=== PATIENT | female | born 1980 | race Caucasian/White ===

== ENCOUNTER 2017-07-28 22:43 | Emergency (ER) | payer MEDICAID, OTHER ==
[2017-07-28] MEDS ORDERED: Tetracaine HCl/PF 0.5% 4 ML Bottle EYEBOTH ONE (22:56)
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
[2017-07-28] MEDS ORDERED: Balanced Salt Solution Ophth Irrig 30 ML Bottle EYERT ONE (22:57)
[2017-07-28] MEDS ORDERED: Balanced Salt Solution Ophth Irrig 30 ML Bottle EYELF ONE (22:57)
[2017-07-28] MEDS ORDERED: methylPREDNISolone Acetate 80 MG/ML SDV IM ONE (23:11)
[2017-07-28] MEDS ORDERED: Diphtheria,Pertussis(Acell),Tetanus Vaccine 0.5 ML SDV IM ONE (23:12)
[2017-07-28] MEDS ORDERED: Famotidine 20 MG Tab PO ONE (23:12)
== END 2017-07-29 | disposition home or self-care (01) ==
LOC: LL.ED 22:43
DX: L24.5 Irritant contact dermatitis due to other chemical products (principal); T65.91XA Toxic effect of unspecified substance, accidental (unintentional), initial encounter; H10.213 Acute toxic conjunctivitis, bilateral; Z23 Encounter for immunization; J45.909 Unspecified asthma, uncomplicated; F17.210 Nicotine dependence, cigarettes, uncomplicated; Y99.0 Civilian activity done for income or pay; Z88.1 Allergy status to other antibiotic agents
CPT/HCPCS: 90471; 90715; 96372; 99284; A9270; J1040; J3360

== ENCOUNTER 2020-09-12 20:03 | Observation (INO) | payer OTHER ==
[2020-09-12] MEDS ORDERED: HYDROmorphone 1 MG/ML Syringe IVPUSH ONE (20:05)
[2020-09-12] MEDS ORDERED: Ondansetron 4 MG/2 ML SDV IVPUSH ONE (20:05)
[2020-09-12] MEDS: Sodium Chloride 0.9% 10 ML Syringe FLUSH PRN ×2 (20:10→20:36)
[2020-09-12 20:35] LABS: CHLORIDE,CL 101 mmol/L (98-107); SODIUM,NA 138 mmol/L (136-145)
[2020-09-12] MEDS ORDERED: HYDROmorphone 0.5 MG/0.5 ML Syringe IVPUSH ONE (20:36)
[2020-09-12] MEDS ORDERED: Ketorolac 30 MG/ML SDV IVPUSH ONE (20:36)
[2020-09-12] MEDS ORDERED: Promethazine 25 MG/ML SDV IM ONE (20:50)
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
[2020-09-12] MEDS ORDERED: Acetaminophen 325 MG Tab PO PRN (21:53)
[2020-09-12] MEDS ORDERED: Morphine 2 MG/ML SYRINGE IVPUSH PRN (21:56)
[2020-09-12] MEDS ORDERED: Promethazine 25 MG/ML SDV IM PRN (21:56)
[2020-09-12] MEDS ORDERED: Ondansetron 4 MG/2 ML SDV IVPUSH PRN (21:56)
[2020-09-12] MEDS: Sodium Chloride 0.9% 1,000 ML IV SCH (22:31)
[2020-09-13] MEDS ORDERED: Ketorolac 30 MG/ML SDV IVPUSH SCH (02:30)
[2020-09-13] MEDS: Sodium Chloride 0.9% 10 ML Syringe FLUSH PRN (02:45)
[2020-09-13] MEDS ORDERED: diphenhydrAMINE 25 MG Cap PO PRN (04:17)
--- NOTE | 2020-09-13 04:52 | PCM.DCSUM1 ---
Discharge Summary - Hospital Course Brief History: Patient admitted for pain control after accidentally pulling out her stent one day after having kidney stone lithotripsy/removal procedure at [facility]. Diagnosis: Stroke: No - Discharge Data Discharge Date: 09/13/20 Discharge Disposition: Home, Self-Care 01 Condition: Good - Referral to Home Health Primary Care Physician: Iris Kline NP - Discharge Diagnosis/Problem(s) (1) Ureteral colic SNOMED Code(s): 63672806 ICD Code: N23 - UNSPECIFIED RENAL COLIC Status: Acute Current Visit: Yes Onset Date: 09/12/20 Problem Details: Ureteral spasm as result of sudden removal of stent a day after patient underwent lithotripsy for right sided stone. Has had no pain complaints since after midnight. from [facility] updated. At this time patient is not interested in returning to [facility] for another stent tomorrow but has been advised to contact them for further planning as needed. - Patient Summary/Data Hospital Course: Patient received Toradol/Dilaudid for pain and Phenergan/Zofran for nausea/emesis. Significant improvement of symptoms within 3-4 hours of ad mission to observation. Currently pain-free. Plan will be to let her be discharged in the morning. She is to call Urology to update them and see if they have any additional recommendations for her since she pulled the stent out on her own. - Patient Instructions Diet: Usual Diet as Tolerated Activity: As Tolerated Driving: Do Not Drive Showering/Bathing: May Shower - Discharge Plan *PRESCRIPTION DRUG MONITORING PROGRAM REVIEWED*: Not Applicable *COPY OF PRESCRIPTION DRUG MONITORING REPORT IN PATIENT LUDA: Not Applicable Home Medications: Home Meds diphenhydrAMINE HCL [Benadryl] 50 mg PO Q4H PRN #100 cap 07/28/17 [Rx] Ciprofloxacin [Ciprofloxacin HCl] 250 mg PO BID 09/12/20 [History] Hydrocodone/Acetaminophen [Hydrocodone-Acetamin 5-325 mg] 1 each PO Q4HR PRN 09/12/20 [History] Spironolactone [Aldactone] 50 mg PO DAILY 09/12/20 [History] Patient Handouts: Renal Colic, [id number] Forms: ED Department Discharge Referrals: Iris Kline NP [Primary Care Provider] - - Discharge Summary/Plan Comment DC Time >30 min.: Yes (Patient will need to get ride home from this morning) - Patient Data Vitals - Most Recent: Last Vital Signs Temp 36.9 C 09/13/20 03:20 Pulse 68 09/13/20 03:20 Resp 18 09/13/20 03:20 BP 94/56 L 09/13/20 03:20 Pulse Ox 95 09/13/20 03:20 Weight - Most Recent: 68.039 kg I&O - Last 24 hours: Intake & Output 09/12/20 09/12/20 09/13/20 14:59 22:59 06:59 Intake Total 50 Output Total 800 Balance -750 Lab Results - Last 24 hrs: Laboratory Results - last 24 hr 09/12/20 09/12/20 09/12/20 Range/Units 20:10 20:10 20:10 WBC 8.9 (4.0-10.2) K/uL RBC 4.26 (3.77-5.09) M/uL Hgb 13.9 (11.7-15.5) g/dL Hct 39.2 (34.0-46.0) % MCV 92.0 (84.0-98.0) fL MCH 32.6 (28.2-33.3) pg MCHC 35.5 (31.7-36.0) g/dL RDW 11.9 (11.2-14.1) % Plt Count 288 (150-350) K/uL Neut % (Auto) 55.3 (45.0-80.0) % Lymph % (Auto) 35.6 (10.0-50.0) % [place] % (Auto) 8.1 (2.0-14.0) % Eos % (Auto) 0.8 (0.0-5.0) % Baso % (Auto) 0.2 (0.0-2.0) % Neut # (Auto) 4.89 (1.40-7.00) K/uL Lymph # (Auto) 3.15 (0.50-3.50) K/uL [place] # (Auto) 0.72 (0.00-1.00) K/uL Eos # (Auto) 0.07 (0.00-0.50) K/uL Baso # (Auto) 0.02 (0.00-0.20) K/uL Sodium 138 (136-145) mmol/L Potassium 3.6 (3.5-5.1) mmol/L Chloride 101 (98-107) mmol/L Carbon Dioxide 22.0 (21.0-32.0) mmol/L BUN 9 (7-18) mg/dL Creatinine 0.97 (0.51-1.17) mg/dL Est Cr Clr Drug Dosing 67.90 mL/min Estimated GFR (MDRD) > 60 mL/min Glucose 98 (74-106) mg/dL Calcium 9.3 (8.5-10.1) mg/dL Magnesium (1.8-2.4) mg/dL Total Bilirubin 0.5 (0.2-1.0) mg/dL AST 12 L (15-37) U/L ALT 21 (12-78) U/L Alkaline Phosphatase 52 (46-116) IU/L Total Protein 7.7 (6.4-8.2) g/dL Albumin 4.4 (3.4-5.0) g/dL Specimen Type Urinvoid Urine Color Traverse Urine Appearance Slightly cloudy Urine pH 7.0 (5.0-9.0) Ur Specific [place] 1.015 (1.005-1.030) Urine Protein >=300 H (NEGATIVE) mg/dL Urine Glucose (UA) 100 H (NEGATIVE) mg/dL Urine Ketones Negative (NEGATIVE) mg/dL Urine Occult Blood Moderate H (NEGATIVE) Urine Nitrite Positive H (NEGATIVE) Urine Bilirubin Negative (NEGATIVE) Urine Urobilinogen 1.0 (0.2-1.0) E.U./dL Ur Leukocyte Esterase Negative (NEGATIVE) Urine RBC 20-30 H /HPF Urine WBC 0-5 /HPF Ur Epithelial Cells Few /LPF Urine Bacteria Rare (NONE TO FEW) /HPF 09/12/20 Range/Units 20:10 WBC (4.0-10.2) K/uL RBC (3.77-5.09) M/uL Hgb (11.7-15.5) g/dL Hct (34.0-46.0) % MCV (84.0-98.0) fL MCH (28.2-33.3) pg MCHC (31.7-36.0) g/dL RDW (11.2-14.1) % Plt Count (150-350) K/uL Neut % (Auto) (45.0-80.0) % Lymph % (Auto) (10.0-50.0) % [place] % (Auto) (2.0-14.0) % Eos % (Auto) (0.0-5.0) % Baso % (Auto) (0.0-2.0) % Neut # (Auto) (1.40-7.00) K/uL Lymph # (Auto) (0.50-3.50) K/uL [place] # (Auto) (0.00-1.00) K/uL Eos # (Auto) (0.00-0.50) K/uL Baso # (Auto) (0.00-0.20) K/uL Sodium (136-145) mmol/L Potassium (3.5-5.1) mmol/L Chloride (98-107) mmol/L Carbon Dioxide (21.0-32.0) mmol/L BUN (7-18) mg/dL Creatinine (0.51-1.17) mg/dL Est Cr Clr Drug Dosing mL/min Estimated GFR (MDRD) mL/min Glucose (74-106) mg/dL Calcium (8.5-10.1) mg/dL Magnesium 2.2 (1.8-2.4) mg/dL Total Bilirubin (0.2-1.0) mg/dL AST (15-37) U/L ALT (12-78) U/L Alkaline Phosphatase (46-116) IU/L Total Protein (6.4-8.2) g/dL Albumin (3.4-5.0) g/dL Specimen Type Urine Color Urine Appearance Urine pH (5.0-9.0) Ur Specific [place] (1.005-1.030) Urine Protein (NEGATIVE) mg/dL Urine Glucose (UA) (NEGATIVE) mg/dL Urine Ketones (NEGATIVE) mg/dL Urine Occult Blood (NEGATIVE) Urine Nitrite (NEGATIVE) Urine Bilirubin (NEGATIVE) Urine Urobilinogen (0.2-1.0) E.U./dL Ur Leukocyte Esterase (NEGATIVE) Urine RBC /HPF Urine WBC /HPF Ur Epithelial Cells /LPF Urine Bacteria (NONE TO FEW) /HPF Med Orders - Current: Current Medications Acetaminophen (Tylenol) 650 mg PO Q4H PRN PRN Reason: analgesia/fever Diphenhydramine HCl (Benadryl) 50 mg PO Q4H PRN PRN Reason: Allergies Sodium Chloride (Normal Saline) 1,000 mls @ 125 mls/hr IV ASDIRECTED MOHIT Last Admin: 09/12/20 22:31 Dose: 125 mls/hr Documented by: Ketorolac Tromethamine (Toradol) 30 mg IVPUSH Q6H [facility] Stop: 09/17/20 21:55 Last Admin: 09/13/20 02:51 Dose: 30 mg Documented by: Morphine Sulfate (Morphine) 2 mg IVPUSH Q1H PRN PRN Reason: Pain Non-Formulary Medication (Ciprofloxacin [Ciprofloxacin Hcl]) 250 mg PO BID [facility] Non-Formulary Medication (Spironolactone [Aldactone]) 50 mg PO DAILY [facility] Ondansetron HCl (Zofran) 4 mg IVPUSH Q6H PRN PRN Reason: Nausea/Vomiting Last Admin: 09/13/20 02:53 Dose: 4 mg Documented by: Promethazine HCl (Phenergan) 25 mg IM Q6H PRN PRN Reason: Nausea Sodium Chloride (Saline Flush) 10 ml FLUSH ASDIRECTED PRN PRN Reason: Keep Vein Open Discontinued Medications Hydromorphone HCl (Dilaudid) 1 mg IVPUSH ONETIME ONE Stop: 09/12/20 20:06 Last Admin: 09/12/20 20:10 Dose: 1 mg Documented by: Hydromorphone HCl (Dilaudid) 0.5 mg IVPUSH ONETIME ONE Stop: 09/12/20 20:37 Last Admin: 09/12/20 20:36 Dose: 0.5 mg Documented by: Ketorolac Tromethamine (Toradol) 30 mg IVPUSH ONETIME ONE Stop: 09/12/20 20:37 Last Admin: 09/12/20 20:40 Dose: 30 mg Documented by: Ondansetron HCl (Zofran) 4 mg IVPUSH ONETIME ONE Stop: 09/12/20 20:06 Last Admin: 09/12/20 20:25 Dose: 4 mg Documented by: Promethazine HCl (Phenergan) 25 mg IM ONETIME ONE Stop: 09/12/20 20:51 Last Admin: 09/12/20 21:03 Dose: 25 mg Documented by:
[2020-09-13] MEDS: Sodium Chloride 0.9% 1,000 ML IV SCH (06:06)
[2020-09-13] MEDS ORDERED: Spironolactone 25 MG Tab PO SCH (08:00)
[2020-09-13] MEDS ORDERED: Ciprofloxacin 500 MG Tab PO SCH (08:00)
== END 2020-09-13 08:23 | disposition home or self-care (01) ==
LOC: LL.ED 20:03 → LL.MS 21:45 → UNDOADMOB 21:45 → LL.MS 21:53
PROVIDERS: ADMIT Emergency Medicine; ATTEND Emergency Medicine
DX: N23 Unspecified renal colic (principal); Z88.1 Allergy status to other antibiotic agents; Z88.8 Allergy status to other drugs, medicaments and biological substances; Z79.899 Other long term (current) drug therapy; Z98.890 Other specified postprocedural states; Z87.442 Personal history of urinary calculi
CPT/HCPCS: 36415; 80053; 81001; 83735; 85025; 96372; 96374; 96375; 96376; 99284-25; G0378; J1170; J1885; J2405; J2550; J7030

== ENCOUNTER 2021-12-02 13:56 | Emergency (ER) | payer OTHER ==
[2021-12-02] MEDS ORDERED: Sodium Chloride 0.9% 10 ML Syringe FLUSH PRN (14:00)
[2021-12-02] MEDS: LORazepam 0.5 MG Tab PO ONE (14:36)
[2021-12-02 14:51] LABS: CHLORIDE,CL 105 mmol/L (98-107); SODIUM,NA 140 mmol/L (136-145)
[2021-12-02 14:52] LABS: ANION GAP 16.5 meq/L (7-15)
== END 2021-12-02 15:47 | disposition home or self-care (01) ==
LOC: LL.ED 13:56
DX: R42 Dizziness and giddiness (principal); Z88.0 Allergy status to penicillin; Z88.1 Allergy status to other antibiotic agents
CPT/HCPCS: 36415; 71046; 80053; 81001; 83605; 84443; 84484; 85025; 85379; 86140; 99284; 99284-25; A9270-GY

== ENCOUNTER 2024-07-30 09:59 | Emergency (ER) | payer BC ==
[2024-07-30] MEDS: Aluminum Hydroxide/Magnesium Hydroxide/Simethicone Susp 30 ML Cup ONE (10:16)
[2024-07-30] MEDS: Aluminum Hydroxide/Magnesium Hydroxide/Simethicone Susp 30 ML Cup PO ONE ×2 (10:23→11:12)
[2024-07-30] MEDS: Lidocaine 2% Viscous Solution 15 ML UD PO ONE ×2 (10:24→11:13)
[2024-07-30] MEDS: Lidocaine 2% Viscous Solution 15 ML UD ONE (10:24)
== END 2024-07-30 11:10 | disposition home or self-care (01) ==
LOC: LL.ED 09:59
DX: K21.00 Gastro-esophageal reflux disease with esophagitis, without bleeding (principal); Z86.16 Personal history of COVID-19; Z90.710 Acquired absence of both cervix and uterus; Z79.899 Other long term (current) drug therapy; Z88.1 Allergy status to other antibiotic agents; Z88.0 Allergy status to penicillin
CPT/HCPCS: 99282; A9270-GY

== ENCOUNTER 2025-08-07 17:43 | Emergency (ER) | payer BC ==
[2025-08-07 18:10] LABS: INR 1.0 (0.9-1.1); PTT,PARTIAL THROMBOPLSTIN TIME 25.4 SEC (23.8-34.4)
[2025-08-07 18:15] LABS: ALANINE AMINOTRANSFERASE,ALT 29 U/L (12-78); ASPARTATE AMNIOTRANSFERASE,AST 16 U/L (15-37); BILIRUBIN TOTAL 0.5 mg/dL (0.2-1.0); BLOOD UREA NITROGEN,BUN 9 mg/dL (7-18); CARBON DIOXIDE,CO2 26.8 mmol/L (21.0-32.0); CHLORIDE,CL 107 mmol/L (98-107); CREATININE 1.00 mg/dL (0.51-1.17); GLUCOSE RANDOM 128 mg/dL (70-99); POTASSIUM,K 3.8 mmol/L (3.5-5.1); PROTEIN TOTAL,TP 7.3 g/dL (6.4-8.2); SODIUM,NA 144 mmol/L (136-145)
[2025-08-07 18:16] LABS: ESTIMATED GFR 72 mL/min (>=60)
[2025-08-07] MEDS: Ketorolac 30 MG/ML SDV IVPUSH ONE (18:20)
[2025-08-07] MEDS: Sodium Chloride 0.9% 10 ML Syringe FLUSH PRN (18:22)
[2025-08-07 19:10] VITALS: BP 112/79; PULSE 73
== END 2025-08-07 19:20 | disposition home or self-care (01) ==
LOC: LL.ED 17:43
DX: M94.0 Chondrocostal junction syndrome [Tietze] (principal); R07.89 Other chest pain; Z88.0 Allergy status to penicillin; Z88.1 Allergy status to other antibiotic agents; Z79.899 Other long term (current) drug therapy; Z86.16 Personal history of COVID-19
CPT/HCPCS: 36415; 71045; 80053; 83690; 83735; 84484; 85610; 85730; 93005; 93010; 96361; 96374; 99284; 99285-25; A9270-GY; J1885; J7030